=== PATIENT | female | born 1980 | race Caucasian/White ===

== ENCOUNTER 2016-03-31 08:05 | Observation (INO) | payer OTHER ==
[2016-03-31] MEDS ORDERED: OXYMETAZOLINE 30 ML NASAL SPRAY EACHNARE ONE (08:45)
[2016-03-31] MEDS ORDERED: BUPIVACAINE/EPI 0.5% 30 ML SDV ONE (08:57)
[2016-03-31] MEDS ORDERED: LIDO/EPI 2% **for epidural** 20 ML SDV ONE (08:58)
[2016-03-31] MEDS ORDERED: methylPREDNISolone SOD SUCC 125 MG/2 ML VIAL ONE (08:58)
[2016-03-31] MEDS ORDERED: POLYMYXIN B SULFATE 500,000 UNIT/10 ML SYR IRR ONE (08:59)
[2016-03-31] MEDS ORDERED: BACITRACIN 50,000 UNITS/10 ML SYR IRR ONE (08:59)
[2016-03-31] MEDS ORDERED: CLINDAMYCIN 600 MG/DEXTROSE 50 ML IV ONE (09:00)
[2016-03-31] MEDS ORDERED: MIDAZOLAM 2 MG/2 ML VIAL ONE (09:17)
[2016-03-31] MEDS ORDERED: PROPOFOL 200 MG/20 ML VIAL ONE ×2 (09:23→13:35)
[2016-03-31] MEDS ORDERED: fentaNYL 250 MCG/5 ML INJ ONE ×2 (09:23→13:34)
[2016-03-31] MEDS ORDERED: LIDOCAINE 2% 5 ML SDV ONE (09:24)
[2016-03-31] MEDS ORDERED: ROCURONIUM 50 MG/5 ML VIAL ONE (09:24)
[2016-03-31] MEDS ORDERED: DEXAMETHASONE 4 MG/ML VIAL ONE ×2 (09:24)
[2016-03-31] MEDS ORDERED: LIDOCAINE 2% JELLY 5 ML TUBE ONE (09:24)
[2016-03-31] MEDS ORDERED: ONDANSETRON 4 MG/2 ML VIAL ONE (09:24)
--- NOTE | 2016-03-31 09:27 | POSTOPPROG ---
Post Op Note Date of Operation: 03/31/16 Surgeon: Denys Mercado Stock Blender: Nemesio Mercado Anesthesiologist: Tristan Ortega Anesthesia: GET(General Endotracheal) (Nasal intubation) Pre-op Diagnosis: Mandibular hypoplasia, ROBB, vertical maxillary excess, microgenia Post-op Diagnosis: Same Indication: ROBB, dental and skeletal deformity Procedure: LeFort1 advancement, BSSO advancement, genioplasty Findings: OSVALDO trapped in the proximal segment bilaterally Inf/Abcess present in the surg proc area at time of surgery?: No EBL: 100-500 Complications: none Specimen(s): none
[2016-03-31] MEDS ORDERED: DEXMEDETOMIDINE HCL 200 MCG in NS 50 ML IV ONE ×2 (09:30→15:30)
[2016-03-31] MEDS ORDERED: SODIUM CL NASAL 45 ML BTL EACHNARE PRN (09:31)
[2016-03-31] MEDS ORDERED: PETROLATUM TP PRN (09:31)
[2016-03-31] MEDS ORDERED: OXYMETAZOLINE 30 ML NASAL SPRAY EACHNARE PRN (09:31)
[2016-03-31] MEDS ORDERED: CLINDAMYCIN 300 MG in D5W 50 ML IV SCH (14:00)
[2016-03-31] MEDS ORDERED: HYDROmorphONE/DILAUDID 1 MG/ML SYR ONE (17:52)
[2016-03-31] MEDS ORDERED: PETROLATUM,WHITE 28.35 GM TUBE TP PRN (19:10)
--- NOTE | 2016-03-31 19:14 | SOAPPROG ---
SOAP Progress Note Assessment/Plan: Assessment: Mery is POD #0 from LeFort 1 advancement, BSSO advancement, genioplasty with downgraft. Overall she is doing well Plan: 1. Will remove chin dressing tomorrow 2. Ice to face x48 hours 3. Transition to PO pain medication if possible. Use IV for breakthrough 4. Clear liquids tonight, full liquids tomorrow 5. I would like the patient to ambulate 4x daily, SCDs until ambulating 6. If the patient is taking good PO, ambulating, voiding and controlling pain with PO will consider discharge tomorrow 7. Please call my cell with questions: [phone] 03/31/16 19:11 Subjective: Mery is POD #0 from LeFort 1 advancement, BSSO advancement, genioplasty with downgraft. She had her Mercado removed at the conclusion of surgery and has voided once since. Pain is 4/10. Has not taken PO pain meds. No PO intake outside of ice chips. No ambulation except to the bathroom. Patient is c/o of thick secretions Objective: Vital Signs Temp Pulse Resp BP Pulse Ox 36.7 C 66 20 113/63 94 03/31/16 18:55 03/31/16 18:55 03/31/16 18:55 03/31/16 18:55 03/31/16 18:55 03/30/16 03/31/16 04/01/16 05:59 05:59 05:59 Intake Total 2500 Output Total 325 Balance 2175 Maxilla well perfused, occlusion stable and repeatable, elastics in place. Midline coincident with mandibular midline and facial midline. Bilateral V3 and V2 numbness. Facial swelling as expected. Chin dressing in place, ice to face. Sutures c/i, sites hemostatic. nasal septum midline, no crusting, breathing well Heart: NR/RR, Lungs CTAB - Time Spent With Patient Time Spent With Patient: 15 minutes - Pending Discharge Pending Discharge Within 24 Hours: Yes Pending Discharge Date: 04/01/16 Pending Discharge Time: 11:00 ICD10 Worksheet Patient Problems: Problems Problem Status Onset Mandibular hypoplasia Acute Obstructive sleep apnea Acute - ICD10 Problem Qualifiers (1) Mandibular hypoplasia
[2016-03-31] MEDS ORDERED: guaiFENesin 200 MG/10 ML UDCUP PO PRN (19:49)
[2016-03-31] MEDS: ONDANSETRON 4 MG/2 ML VIAL IVP PRN ×2 (19:49→21:51)
[2016-03-31] MEDS: KETOROLAC 30 MG/1 ML SDV IVP SCH ×2 (19:55→20:05)
[2016-03-31] MEDS: DEXAMETHASONE 4 MG/ML VIAL IVP SCH (19:56)
[2016-03-31] MEDS: CLINDAMYCIN 600 MG/DEXTROSE 50 ML IV SCH (19:56)
--- NOTE | 2016-03-31 21:44 | GOP ---
DATE OF OPERATION: 03/31/2016 SURGEON: Denys Mercado DDS SPECIALTY MANUFACTURING SUPERVISOR: Nemesio Mercado DDS ANESTHESIA: General nasotracheal. ANESTHESIOLOGIST: Aubrey Ortega MD PREOPERATIVE DIAGNOSIS: 1. Mandibular hypoplasia. 2. Maxillary hypoplasia. 3. Obstructive sleep apnea. 4. Microgenia. 5. Class 2 skeletodental deformity. POSTOPERATIVE DIAGNOSIS: 1. Mandibular hypoplasia. 2. Maxillary hypoplasia. 3. Obstructive sleep apnea. 4. Microgenia. 5. Class 2 skeletodental deformity. PROCEDURE PERFORMED: 1. LeFort 1 osteotomy advancement. 2. Bilateral sagittal split osteotomy advancement. 3. Genioplasty with down graft. FINDINGS: The inferior alveolar nerve was trapped in the proximal segment bilaterally. ESTIMATED BLOOD LOSS: Approximately 150 cc. INDICATIONS: This is a 35-year-old female with past medial history significant for epilepsy as well as the above preoperative diagnosis who has previously been evaluated in clinic and it was determined that orthognathic surgery was needed to correct her skeletodental facial deformity as well as her obstructive sleep apnea. She was seen in the clinic yesterday to go over risks, benefits, consequences, and potential complications of the procedure. Signed and verbal consent was obtained. We also reviewed postoperative instructions written and verbally. Postoperative prescriptions were also given to the patient at that time. She presented to the hospital today n.p.o. and with an escort. The plan will be to admit the patient to observation following surgery. DESCRIPTION OF PROCEDURE: The patient was transported into the OR and onto the operating room table. Following successful nasotracheal intubation the patient was prepped and draped in a normal sterile fashion. Throat screen was placed. Approximately 10 cc of a mixture of 2% Lidocaine with 1:200,000 epinephrine and 0.5% Marcaine with 1:200,000 epinephrine was infiltrated into the maxillary and mandibular vestibule and given in an inferior alveolar nerve block. A 0.35 K- wire was placed in the nasal radix and the vertical was measured. Bovie electrocautery was used to perform a ramus exposing incision on the right. Subperiosteal dissection was performed of both the buccal and lingual aspect of the mandible and the mandibular foramen was identified with a nerve hook. The masseter and medial pterygoid muscle was stripped off the inferior border. Next, a guarded oscillating saw was used to perform the horizontal osteotomy superior to the mandibular foramen. An unguarded oscillating saw blade was used to perform the sagittal portion of the osteotomy and then the guarded saw blade was used to perform the vertical portion of the osteotomy making sure that the osteotomy is carried all the way through the inferior border of the mandible. All osteotomy cuts were performed under copious irrigation during the procedure. The right mandibular surgical site was then irrigated with normal saline impregnated with bacitracin and Ray-Guadalupe was placed for hemostasis. Next the identical dissection and osteotomy cuts were performed on the left mandible. Attention was then turned to the maxilla where a vestibular incision was performed with the Bovie electrocautery and subperiosteal dissection was performed with a #9 to expose the anterior and lateral aspect of the maxilla all the way to the pterygoid plates. A Jessica elevator was used to carefully perform subperiosteal dissection of the nasal mucosa to expose the lateral nasal wall as well as the nasal floor. The septum was dissected off the anterior nasal spine. Next, a #9 was placed against the lateral nasal wall to protect the nasal mucosa and an oscillating saw was used to perform the LeFort 1 osteotomy bilaterally. The oscillating saw was then turned posteriorly to complete the osteotomy all the way through the buttress on the right and left maxilla. The osteotomy was redefined with a straight osteotome and mallet and then the guarded nasal chisel was used to separate the nasal septum from the nasal floor of the maxilla. The lateral nasal wall chisels were then used to complete the osteotomy of the lateral nasal wall making sure to spare the descending palatine artery. Finally, the curved osteotomes were used to separate the pterygoid plates from the maxilla bilaterally. The maxilla was then down-fractured and the nasal mucosa was completely dissected posteriorly off the nasal floor. Next, a septoplasty was performed of the inferior septum by dissecting the cartilaginous septum from the nasal mucosa and trimming approximately 5 mm of nasal septum. The lateral nasal wall and remaining bony septum were then trimmed with a rongeur being careful not to injure the descending palatine artery. A small tear in the nasal mucosa was reapproximated with a running 4-0 chromic suture. The patient was then wired into an intermediate splint and wendy interferences were removed with a watermelon bur under copious irrigation. Initially the patient's vertical dimension prior to the osteotomy was measured from a K wire in the nasal radix to her bracket on tooth #9 as 74 mm. Following the planned 5 mm impaction the patient's vertical was measured at 69 mm. Prior to fixating the maxilla the maxillary sinus and osteotomy site was thoroughly irrigated with bacitracin impregnated in normal saline and all bone sedimentation and bone fragments were removed. Once the passive wendy contact was noted on the right and left maxilla 4 separate Shun L-plates were contoured and secured to the maxilla with 5 and 6 mm self- drilling screws. Next, an alar cinch was performed to control the widening of the nasal base. Prior to LeFort osteotomy the patient's alar base was measurement was 29 mm. After the alar cinch was performed the alar base was measured at 29 mm. A 1cm V -Y closure was performed with 4-0 chromic suture as well as closure of the maxillary vestibular incision. The patient's intermediate splint was removed. Attention was then turned back to the mandible. The osteotomy was completed bilaterally with progressively enlarging straight and curved chisel and mallet as well as a Cain replacer and inferior border splitter. Once the right bilateral sagittal split osteotomy was completed it was noted that the inferior alveolar nerve was trapped in the proximal segment. A small straight chisel osteotome and mallet as well as careful dissection with a Versailles elevator were used to gently dissect the inferior alveolar nerve from where it was trapped along the proximal segment. It was trapped for approximately a 1.5 cm portion of the osteotomy. The inferior alveolar nerve did not appear to be grossly damaged outside of some minor tears in the epineurium once it was freely dissected from the proximal segment. On the left side the inferior alveolar nerve was also trapped but only in a small 7 mm portion of the marrow space and it was more easily dissected with Jessica elevator alone. The bony protrusions on the proximal segment were then smoothed and removed with a watermelon bur under copious irrigation bilaterally while protecting the inferior alveolar nerve. The patient was then placed into her final occlusal splint. The occlusion was verified and the proximal segments were passively seated into the cranial fossa and secured using a Charlotte clamp bilaterally. On the right side a 4 hole Kennard bone plate was used to secure the proximal and distal segment making sure to maintain the small gap between the proximal and distal segment. The plate was contoured and secured in place with 4 separate Kennard 5 and 6 mm screws. Two of the screws were 2.0 mm and the other two were 2.3 mm because the 2.0 mm screws were not stable. Next, attention was turned to the left side where a Kennard 6 hole mandibular bone plate was contoured and secured to the proximal and distal segment after the proximal segment was passively seated into the condylar fossa and the inferior border was aligned. The bone plate was secured in place with Shun 2.0 mm x 5 mm screws. The patient was released from intermaxillary fixation and her occlusion was verified. Equilibration on tooth #6 was performed where there was a slight interference. This was planned preoperatively. The equilibration was performed with a round paulie bur under irrigation. Because fixation was not as stable on the right side, I then went back and placed two 2 mm x 10 mm bicortical screws proximal to the bone plate to add extra stability to the fixation. This was done with the 90 degree screw jinriksha driver. Lastly, attention was turned to the genioplasty where 5 cc of the lidocaine/ marcaine mixture was infiltrated into the anterior mandibular vestibule. A vestibular incision was performed with the Bovie electrocautery making sure to preserve a cuff of mentalis muscle against the anterior mandible and also being mindful of the mental neurovascular bundle. Subperiosteal dissection was performed to identify the mental nerve and the midline of the chin was marked with vertical score through the anterior cortex using a reciprocating saw. Next , the saw blade was used to make the genioplasty cut 5 mm below the mental foramen and the genioplasty osteotomy was completed with straight osteotomes. The chin was mobilized and an 8 mm genioplasty plate was bent to allow for 6 mm of advancement and 5 to 6 mm of downgrafting. The osteotomy site was irrigated with bacitracin impregnated normal saline. An allograft fibula was then trimmed to create two separate allograft blocks which were placed in the genioplasty site to downgraft the chin. The bone plate was used to secure the genioplasty in the proper AP and vertical position. The remaining genioplasty defect was filled with combination of allograft particulate, xenograft particulate and allograft putty. The graft was covered with HeliCote and the vestibular incision was closed in layers. First the mentalis muscle was reapproximated with 4-0 Vicryl pop-off sutures and the mucosa was reapproximated with 4-0 Chromic gut running locking suture. The bilateral mandibular vestibular incisions were also closed with 4-0 Chromic gut running locking sutures. The patient's throat screen was removed and nasogastric tube was placed and her stomach contents were evacuated prior to extubation. The patient's K wire was removed and she was allowed to awake from anesthesia. A chin dressing was placed with Mastisol and 1-inch foam tape. Local anesthesia was then infiltrated into the maxillary and mandibular vestibule with 10 cc of the lidocaine-Marcaine mixture to help with patient's discomfort postoperatively. The patient was allowed to awake from anesthesia and was transported to the PACU in stable condition. DISPOSITION: The patient will be admitted for observation overnight and will possibly be discharged tomorrow if she is doing well postoperatively. /[id number]/MODL MTDD
[2016-04-01] MEDS ORDERED: SCOPOLAMINE HYDROBROMIDE 1.5 MG PATCH TD PRN (00:06)
[2016-04-01] MEDS: FLUTICASONE NASAL 120 SPRAYS/16 GM MDI EACHNARE SCH ×2 (00:58→08:45)
[2016-04-01] MEDS: PROMETHAZINE HCL 25 MG/ML INJ IVP PRN ×2 (01:09→08:47)
[2016-04-01] MEDS: KETOROLAC 30 MG/1 ML SDV IVP SCH ×5 (01:09→23:14)
[2016-04-01] MEDS: CLINDAMYCIN 600 MG/DEXTROSE 50 ML IV SCH ×3 (03:18→20:39)
[2016-04-01] MEDS: DEXAMETHASONE 4 MG/ML VIAL IVP SCH ×3 (03:18→20:39)
--- NOTE | 2016-04-01 07:51 | SOAPPROG ---
SOAP Progress Note Assessment/Plan: Assessment: Mery is POD #1 from LeFort 1 advancement, BSSO advancement, genioplasty with downgraft. Overall she is doing well Plan: 1. Patient has elected to take liquid Keppra instead of her ER Keppra tab. This will be given in two separate doses 2. Ice to face x48 hours 3. Transition to PO pain medication if possible. Use IV for breakthrough 4. Full liquids today 5. I would like the patient to ambulate 4x daily, SCDs until ambulating 6. If the patient is taking good PO, ambulating, voiding and controlling pain with PO will consider discharge at 5PM tonight 7. Please call my cell with questions: [phone] 03/31/16 19:11 04/01/16 07:47 Subjective: Mery is POD #1 from LeFort 1 advancement, BSSO advancement, genioplasty with downgraft. She is voiding but is not taking good PO. She has nausea last night but no vomiting. Pain is well controlled with IV. Objective: Vital Signs Temp Pulse Resp BP Pulse Ox 36 C 88 16 128/80 H 96 04/01/16 07:35 04/01/16 07:35 04/01/16 07:35 04/01/16 07:35 04/01/16 07:35 03/31/16 04/01/16 04/02/16 05:59 05:59 05:59 Intake Total 2952 Output Total 1425 Balance 1527 Chin dressing removed, no hematoma. Sutures c/i and hemostatic. Minor nasal crusting present but patient using ocean and humidified air. Able to breath easily through her nose. Maxillary mucosa well perfused. V3 and V2 numbness present. Occlusion stable, elastics in place. ICD10 Worksheet Patient Problems: Problems Problem Status Onset Mandibular hypoplasia Acute Obstructive sleep apnea Acute - ICD10 Problem Qualifiers (1) Mandibular hypoplasia
[2016-04-01] MEDS ORDERED: LEVETIRACETAM 1000 MG PO SCH (09:00)
[2016-04-01] MEDS: levETIRAcetam 500 MG/5 ML UDCUP PO SCH ×2 (09:57→20:39)
[2016-04-01] MEDS: LEVONORGESTREL ETHIN ESTRADIOL PO SCH (11:09)
[2016-04-01] MEDS: HYDROCOD/APAP 7.5/325 IN 15ML UDCUP PO PRN ×2 (13:50→20:38)
[2016-04-01 22:54] VITALS: RESP 16
[2016-04-02] MEDS: FLUTICASONE NASAL 120 SPRAYS/16 GM MDI EACHNARE SCH ×2 (00:18→08:27)
[2016-04-02] MEDS: CLINDAMYCIN 600 MG/DEXTROSE 50 ML IV SCH ×2 (05:40→11:02)
[2016-04-02] MEDS: DEXAMETHASONE 4 MG/ML VIAL IVP SCH ×2 (05:41→11:02)
[2016-04-02] MEDS: KETOROLAC 30 MG/1 ML SDV IVP SCH ×2 (05:41→11:45)
[2016-04-02 07:25] VITALS: BP 125/97; PULSE 73; TEMP 97.9; O2SAT 99
--- NOTE | 2016-04-02 07:39 | SOAPPROG ---
SOAP Progress Note Assessment/Plan: Assessment: Mery is POD #2 from LeFort 1 advancement, BSSO advancement, genioplasty with downgraft. Overall she is doing well Plan: 1. Patient has asked for liquid medication. This includes liquid Keppra 500mg BID 2. Ice to face through today 3. Continue PO pain medication if possible. 4. Full liquids today 5. I would like the patient to ambulate 4x daily, SCDs until ambulating 6. Discharge at 12 today. I would like the patient to receive one more dose of steroid and ABX prior to discharge 7. Please call my cell with questions: [phone] 03/31/16 19:11 04/01/16 07:47 04/02/16 07:35 04/02/16 07:44 Subjective: Mery is POD #2 from LeFort 1 advancement, BSSO advancement, genioplasty with downgraft. Patient has taken over 1L of fluid over the last 24 hours. Pain is 3- 4/10. She is ambulating and is controlling pain with PO pain meds and IV Toradol Objective: Vital Signs Temp Pulse Resp BP Pulse Ox 36.6 C 73 16 125/97 H 99 04/02/16 07:22 04/02/16 07:22 04/02/16 07:22 04/02/16 07:22 04/02/16 07:22 04/01/16 04/02/16 04/03/16 05:59 05:59 05:59 Intake Total 2952 1135 Output Total 1425 Balance 1527 1135 Exam unchanged from last night with the exception of slightly more swelling in the lips - Time Spent With Patient Time Spent With Patient: 15 min - Pending Discharge Pending Discharge Within 24 Hours: Yes Pending Discharge Date: 04/03/16 Pending Discharge Time: 12:00 ICD10 Worksheet Patient Problems: Problems Problem Status Onset Mandibular hypoplasia Acute Obstructive sleep apnea Acute - ICD10 Problem Qualifiers (1) Mandibular hypoplasia
[2016-04-02] MEDS: levETIRAcetam 500 MG/5 ML UDCUP PO SCH (08:26)
[2016-04-02] MEDS: CHLORHEXIDINE GLUCONATE 15 ML UDL PO SCH ×2 (08:26→11:12)
--- NOTE | 2016-04-02 09:34 | GDS ---
DIAGNOSES: 1. Mandibular hypoplasia. 2. Maxillary hypoplasia. 3. Obstructive sleep apnea. 4. Dentoskeletal class 2 deformity. 5. Microgenia. PROCEDURE: Date of procedure was 03/31/2016. 1. LeFort 1 advancement. 2. Bilateral sagittal split osteotomy advancement. 3. Genioplasty with down graft. CONSULTATIONS: None. HISTORY OF PRESENT ILLNESS: The patient is a 35-year-old female who was previously diagnosed with o bstructive sleep apnea as well as a class 2 skeletodental facial deformity requiring orthognathic hammond rgery to correct. She had orthognathic surgery performed on 03/31/2016 to correct her deformity. S he was admitted to the hospital following the surgery and had a benign postoperative course. PHYSICAL EXAMINATION: HEAD AND NECK: Occlusion stable and repeatable. Maxillary and mandibular mi dline coincident with facial midline. Facial swelling consistent with surgery. The patient has duy ateral V2 and V3 numbness. Incisions clean, intact, hemostatic. Nasal septum midline. Minimal garth al crusting is noted. DISCHARGE MEDICATIONS: The patient was given all of her discharge medications at the office prior t o being admitted to surgery. These included liquid hydrocodone, liquid Phenergan, liquid ibuprofen, liquid Keppra, chlorhexidine mouth rinse, Afrin nasal spray, Flonase. DISCHARGE INSTRUCTIONS: The patient will be discharged on a liquid diet for the next 6 weeks. She is not to lift over 20 pounds for the next 6 weeks. FOLLOWUP PLANS: She will follow up in our office on 04/02/2016 for postoperative x-rays. /[id number]/MODL
[2016-04-02] MEDS: LEVONORGESTREL ETHIN ESTRADIOL PO SCH (10:36)
== END 2016-04-02 12:22 | disposition home or self-care (01) ==
LOC: F3E 08:05
PROVIDERS: ADMIT Dentist Oral and Maxillofacial Surgery; ATTEND Dentist Oral and Maxillofacial Surgery
PROC: 0NST0ZZ Reposition Right Mandible, Open Approach (ICD-10-PCS; principal; 2016-03-31 09:45)
PROC: 0NSR0ZZ Reposition Maxilla, Open Approach (ICD-10-PCS; principal; 2016-03-31 09:45)
PROC: [UNRECOGNIZED PROCEDURE] (principal; 2016-03-31 09:45)
PROC: 0NSV0ZZ Reposition Left Mandible, Open Approach (ICD-10-PCS; principal; 2016-03-31 09:45)
DX: M26.04 Mandibular hypoplasia (principal); M26.02 Maxillary hypoplasia; M26.06 Microgenia; G47.33 Obstructive sleep apnea (adult) (pediatric); G40.B09 Juvenile myoclonic epilepsy, not intractable, without status epilepticus
CPT/HCPCS: 21141; 21188; G0378; C1713; C1762; C1763; J1100; J1170; J1885; J2250; J2405; J2550; J2704; J3010

== ENCOUNTER → 2018-02-28 | Outpatient (CLI) | payer OTHER | LOC: FIMAGING 09:13 | PROVIDERS: ATTEND Advanced Practice Midwife | DX: O09.512 Supervision of elderly primigravida, second trimester (principal); O99.89 Other specified diseases and conditions complicating pregnancy, childbirth and the puerperium; G40.909 Epilepsy, unspecified, not intractable, without status epilepticus; Q24.9 Congenital malformation of heart, unspecified; Z3A.28 28 weeks gestation of pregnancy ==

== ENCOUNTER 2018-05-02 10:20 | Observation (INO) | payer OTHER ==
--- NOTE | 2018-05-02 11:12 | PDGENHP ---
History and Physical History and Physical: CARE: [facility] HPI: Patient is a 37 yo G 1 P 0 @ weeks that presents to L&D after having 2 elevated blood pressures at routine visit today. She denies headache or visual changes. 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 She is here for serial BP and review of her PIH labs that were drawn earlier as outpatient EDC: 05/20/18 which is based on LMP: 08/01/17 which is known. But HOLLAND not consistent with Ultrasound at 8 weeks, so working HOLLAND based on early u/s. Her is complicated by: AMA; history of juvenile myoclonic epilepsy, on Keppra; hx of BBB (intermittent); hx of migraines with aura; stable PFO Review of Systems: Constitutional: Denies any fever, chills, or fatigue HEENT: denies any visual changes, difficulty swallowing, hearing loss Cardiovascular: Denies any chest pain, palpitations, leg swelling Respiratory: denies any cough, wheezing, or shortness of breathe GI: Denies any nausea, vomiting, diarrhea, constipation : denies any dysuria, urgency, frequency, vaginal bleeding Musculoskeletal: denies any muscle or bone pain Skin: denies any rashes Neuro: denies any headache, seizures, lightheadedness, dizziness, or loss of consciousness Psychiatric: denies any depression, anxiety, or SI/HI thoughts HISTORY: Previous OB history: nullip 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: , 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 history: non-contributory Past medical history: BBB, stable PFO, juvenile myoclonic epilepsy Past surgical history: appendectomy 2006, jaw surgery 2017, wisdom teeth Medications: PNV, keppra 1000mg qday, benadryl PRN Allergies (list reaction): amoxicillin (hives), lamictal (hives) LABS: Rh: B+ ABS: Neg Rubella: Immune HbsAg: NR HIV: NR VDRL: NR 1hr: 108 GC: Neg Chlamydia: Neg Pap: Normal 2018 GBS: neg BMI: (prepreg) 23 PHYSICAL EXAM: Constitutional: WN, A&Ox3 HEENT: normocephalic atraumatic, supple Heart: RRR, no murmur Chest: CTA-B Skin: warm, dry, intact Abdomen: Soft, nontender, gravid SVE: closed/thick in office Extremities: trace edema, negative homans sign Neuro: grossly normal, brisk reflexes Psych: normal affect assessment: FHT baseline 130, +accels, no decels, moderate variability Contractions: none Assessment: 1) 37 yo with IUP@ 37.3 2) elevated BP in office 3) GBS neg 4) Cat 1 FHR tracing Plan: 1) Admit to L&D for observation only 2) PIH labs normal this AM 3) serial BP, d/c home after 4 hour observation .
--- NOTE | 2018-05-02 13:02 | OBGCSDC ---
General Delivery Information - General Info : 1 Para: 0 Abortions: 0 Admission Date: 05/02/18 Data HOLLAND: 05/20/18 Gestational Age: 37 week(s) and 3 day(s) Discharge Information - Discharge Information Instruction/Follow Up: See Instruction Sheet (discharge undelivered)
== END 2018-05-02 13:14 | disposition home or self-care (01) ==
LOC: FLD 10:20
PROVIDERS: ADMIT Advanced Practice Midwife; ATTEND Advanced Practice Midwife
DX: O99.89 Other specified diseases and conditions complicating pregnancy, childbirth and the puerperium (principal); R03.0 Elevated blood-pressure reading, without diagnosis of hypertension; O09.513 Supervision of elderly primigravida, third trimester; G40.B09 Juvenile myoclonic epilepsy, not intractable, without status epilepticus; G43.109 Migraine with aura, not intractable, without status migrainosus; Q21.1 Atrial septal defect; Z3A.37 37 weeks gestation of pregnancy
CPT/HCPCS: 59025; G0378

== ENCOUNTER 2018-05-04 16:29 | Inpatient (IN) | payer OTHER ==
--- NOTE | 2018-05-04 16:56 | PDGENHP ---
History and Physical History and Physical: History and Physical: CARE: [facility] HPI: Patient is a 37 yo G 1 P 0 @ 37 weeks and 6 days that presents to L&D after having elevated blood pressures in office on Tuesday and again today at her f/u visit. She denies headache or visual changes. She also has proteinurea that developed today with P/C ratio of 0.312 or 369mg/24hour. EDC: 05/20/18 which is based on LMP: 08/01/17 which is known. But HOLLAND not consistent with Ultrasound at 8 weeks, so working HOLLAND based on early u/s. Her is complicated by: AMA; history of juvenile myoclonic epilepsy, on Keppra; hx of BBB (intermittent); hx of migraines with aura; stable PFO Review of Systems: Constitutional: Denies any fever, chills, or fatigue HEENT: denies any visual changes, difficulty swallowing, hearing loss Cardiovascular: Denies any chest pain, palpitations, leg swelling Respiratory: denies any cough, wheezing, or shortness of breathe GI: Denies any nausea, vomiting, diarrhea, constipation : denies any dysuria, urgency, frequency, vaginal bleeding Musculoskeletal: denies any muscle or bone pain Skin: denies any rashes Neuro: denies any headache, seizures, lightheadedness, dizziness, or loss of consciousness Psychiatric: denies any depression, anxiety, or SI/HI thoughts HISTORY: Previous OB history: nullip 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: , 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 history: non-contributory Past medical history: BBB, stable PFO, juvenile myoclonic epilepsy Past surgical history: appendectomy 2006, jaw surgery 2017, wisdom teeth Medications: PNV, keppra 1000mg qday, benadryl PRN Allergies (list reaction): amoxicillin (hives), lamictal (hives) LABS: Rh: B+ ABS: Neg Rubella: Immune HbsAg: NR HIV: NR VDRL: NR 1hr: 108 GC: Neg Chlamydia: Neg Pap: Normal 2018 GBS: neg BMI: (prepreg) 23 PHYSICAL EXAM: Constitutional: WN, A&Ox3 HEENT: normocephalic atraumatic, supple Heart: RRR, no murmur Chest: CTA-B Skin: warm, dry, intact Abdomen: Soft, nontender, gravid SVE: closed/thick in office on Tuesday Extremities: trace edema, negative homans sign Neuro: grossly normal, brisk reflexes Psych: normal affect assessment: FHT baseline 130, +accels, no decels, moderate variability Contractions: none Assessment: 1) 37 yo with IUP@ 37.6 2) pre-eclampsia 3) GBS neg 4) Cat 1 FHR tracing Plan: 1) Admit to L&D for induction of labor 2) Anticipate 3) case reviewed with Dr. New and she agrees with plan
[2018-05-04] MEDS ORDERED: TERBUTALINE SULFATE 1 MG/ML VIAL IV PRN (19:40)
[2018-05-04] MEDS ORDERED: EPSOM SALT 454 GM TP PRN (19:40)
[2018-05-04] MEDS ORDERED: AMMONIA AROMATIC 1 EACH AMP IH PRN (19:40)
[2018-05-04] MEDS ORDERED: OXYTOCIN/RINGERS LACTATE 1,000 ML IV PRN (19:40)
[2018-05-04] MEDS ORDERED: MISOPROSTOL 200 MCG TAB PO PRN (19:40)
[2018-05-04] MEDS ORDERED: LR 1,000 ML IV PRN (19:40)
[2018-05-04] MEDS ORDERED: OLIVE OIL 118 ML BTL MISC PRN (19:40)
[2018-05-04] MEDS ORDERED: LIDOCAINE 1% 300 MG/30 ML SDV SC PRN (19:40)
[2018-05-04] MEDS ORDERED: IBUPROFEN 600 MG TAB PO PRN (19:40)
[2018-05-04] MEDS ORDERED: ZOLPIDEM TARTRATE 5 MG TAB PO PRN (19:42)
--- NOTE | 2018-05-04 19:46 | SOAPPROG ---
SOAP Progress Note Assessment/Plan: Assessment: 1. Pre-eclampsia 2. 37.5 weeks gestation Plan: 1. Induction of labor 05/04/18 19:44 Subjective: VSS, elevate BP since admission, no severe BP Objective: Pt comfortable. FOB at bedside - Pending Discharge Pending Discharge Within 24 Hours: No Pending Discharge Within 48 Hours: No ICD10 Worksheet Patient Problems: Problems Problem Status Onset Elevated blood pressure affecting in third trimester, antepartum Acute Pre-eclampsia during in third trimester, antepartum Acute Mandibular hypoplasia Acute Obstructive sleep apnea Acute - ICD10 Problem Qualifiers (1) Pre-eclampsia during in third trimester, antepartum
[2018-05-04] MEDS ORDERED: OLIVE OIL 118 ML BTL MISC ONE (20:17)
[2018-05-04] MEDS ORDERED: LIDOCAINE 1% 300 MG/30 ML SDV ONE (20:17)
[2018-05-04] MEDS ORDERED: AMMONIA AROMATIC 1 EACH AMP IH ONE (20:17)
[2018-05-04] MEDS: MISOPROSTOL 25 MCG CAP PO PRN (21:14)
[2018-05-05] MEDS: MISOPROSTOL 25 MCG CAP PO PRN ×2 (01:05→05:16)
--- NOTE | 2018-05-05 09:05 | OBPROG ---
Labor Progress Note Assessment/Plan: Assessment: 38 y/o P0 at 37.6 weeks ega Pre -eclampsia without severe features 3 doses of cytotec overnight with little response Cervical exam unchanged this AM - closed/50/-2 VSS - BPs 130s/80s overnight Denies headache, visual changes, epigastric pain Cat 1 EFM Plan: Place cook cath One more dose of cytotec and reevaluate for pitocin after that dose 05/05/18 09:06 Objective: Patient ABO/Rh B POSITIVE 05/04/18 20:00 - SVE Dilation (cm): 0 Effacement (%): 50 Station: -2 Membranes: Intact - Contraction Pattern Assessment Current Contraction Pattern: Irregular - Procedures Non-surgical Procedures: Other (Specify) (Cook catheter placed, 60 cc internal balloon, 20 cc external balloon) - Physical Exam General Appearance: WD/WN, alert Neck: non-tender Respiratory: normal breath sounds Cardiac/Chest: regular rate, rhythm Abdomen: non-tender Extremities: normal range of motion Skin: normal color, warm/dry Neuro/Psych: alert, normal mood/affect, oriented x 3 Oxytocin Orders Assessment - Pre-Induction/Augmentation Assessment Gestational Age: 37 week(s) and 5 day(s) ICD10 Worksheet Patient Problems: Problems Problem Status Onset Elevated blood pressure affecting in third trimester, antepartum Acute Pre-eclampsia during in third trimester, antepartum Acute Mandibular hypoplasia Acute Obstructive sleep apnea Acute
[2018-05-05] MEDS ORDERED: MISOPROSTOL 50 MCG CAP PO ONE (09:18)
[2018-05-05] MEDS ORDERED: LR 500 ML IV PRN (15:04)
--- NOTE | 2018-05-05 15:10 | OBPROG ---
Labor Progress Note Assessment/Plan: Assessment: 38 y/o P0 at 37.6 weeks ega Pre -eclampsia without severe features Cook catheter remains in place Mild/mod contractions q 2-4 - feeling cramps, still fairly comfortable VSS - BPs 130s/80s overnight Denies headache, visual changes, epigastric pain Cat 1 EFM Plan: Will start pitocin per protocol Pain management as patient desires Reevaluate this PM if not actively laboring 05/05/18 09:06 05/05/18 15:07 Objective: Patient ABO/Rh B POSITIVE 05/04/18 20:00 Starting to feel more crampy discomfort with contractions. Tolerating well - SVE Membranes: Intact - Contraction Pattern Assessment Current Contraction Pattern: Regular - Procedures Non-surgical Procedures: Other (Specify) (Cook catheter placed, 60 cc internal balloon, 20 cc external balloon) Oxytocin Orders Assessment - Pre-Induction/Augmentation Assessment Gestational Age: 37 week(s) and 5 day(s) ICD10 Worksheet Patient Problems: Problems Problem Status Onset Pre-eclampsia during in third trimester, antepartum Acute Elevated blood pressure affecting in third trimester, antepartum Acute Mandibular hypoplasia Acute Obstructive sleep apnea Acute
[2018-05-05] MEDS ORDERED: OXYTOCIN/RINGERS LACTATE 500 ML IV SCH (15:30)
[2018-05-05] MEDS ORDERED: fentaNYL 2MCG/ML/BUP 0.1% RTU 100 ML BAG EP ONE (18:30)
[2018-05-05] MEDS ORDERED: BUPIVACAINE 0.25% 10 ML SDV ONE (18:30)
[2018-05-05] MEDS ORDERED: PHENYLEPHRINE HCL 100 MCG/ML SYR ONE (18:30)
--- NOTE | 2018-05-05 18:51 | OBPROG ---
Labor Progress Note Assessment/Plan: Assessment: 38 y/o P0 at 37.6 weeks ega Pre -eclampsia without severe features Cook catheter removed with a tug, SVE 3-4/75/-2 SROM clear fluid Pitocin at 6 mu VSS - BPs WNL Denies headache, visual changes, epigastric pain Cat 1 EFM currently, had a short period of intermittent variable decelerations after SROM that have resolved Requesting epidural Plan: Anesthesia notified Anticipate 05/05/18 09:06 05/05/18 15:07 05/05/18 18:48 Subjective/Intrapartum Course: 05/05/18 18:51 Feeling much more uncomfortable since SROM. Tried tub and nitrous - requesting epidural now. Objective: Patient ABO/Rh B POSITIVE 05/04/18 20:00 - SVE Dilation (cm): 3 Effacement (%): 75 Station: -2 Membranes: SROM, Intact Amniotic Fluid Color: Clear - Contraction Pattern Assessment Current Contraction Pattern: Regular - Procedures Non-surgical Procedures: Other (Specify) (Cook catheter placed, 60 cc internal balloon, 20 cc external balloon) Oxytocin Orders Assessment - Pre-Induction/Augmentation Assessment Gestational Age: 37 week(s) and 5 day(s) ICD10 Worksheet Patient Problems: Problems Problem Status Onset Pre-eclampsia during in third trimester, antepartum Acute Elevated blood pressure affecting in third trimester, antepartum Acute Mandibular hypoplasia Acute Obstructive sleep apnea Acute
[2018-05-05] MEDS ORDERED: NALOXONE HCL 0.4 MG/ML INJ IVP PRN (18:57)
[2018-05-05] MEDS ORDERED: PHENYLEPHRINE HCL 100 MCG/ML SYR IVP PRN (18:57)
--- NOTE | 2018-05-05 18:59 | PREANESOB ---
Obstetric Pre-Anesthesia Info - General Info : 1 Para: 0 [place]: 05/20/18 Gestational Age: 37 week(s) and 5 day(s) - Info Status: Full Term - Labor Status Cervical Dilation per last OB SVE: 3 Station per last OB SVE: -2 Amniotic Fluid Color: Clear Indications for Labor Analgesia: Pain Control Labor Epidural: Proposed Anesthesia Allergies/Adverse Reactions: Allergy/AdvReac Type Severity Reaction Status Date / Time amoxicillin [Amoxicillin] Allergy Hives Verified 05/04/18 17:28 lamotrigine [From Lamictal] Allergy Hives Verified 05/04/18 17:28 pseudoephedrine HCl Allergy Other-Enter Verified 05/04/18 17:28 [From Sudafed] Comments Home Medications: Medication Instructions Recorded Magnesium Oxide [Magnesium Oxide 500 mg PO DAILY 03/02/16 500 mg] Keppra 1000 mg 1 tab PO DAILY 05/02/18 1 tab PO DAILY 05/02/18 Visit Medications: Generic Name Dose Route Start Last Admin Trade Name Freq PRN Reason Stop Dose Admin Ammonia (Aromatic Spirit) 1 each 05/04/18 19:40 Ammonia Aromatic IH 05/14/18 19:39 ONCE PRN Fainting Diphenhydramine HCl 25 - 50 mg 05/05/18 18:57 Benadryl Injection IVP 11/01/18 18:56 Q6HRS PRN Itching Lactated Ringer's 1,000 mls @ 0 mls/hr 05/04/18 19:40 Lr IV 05/05/18 19:39 PRN PRN SEE PROTOCOL CONDITIONS Protocol Per Protocol Oxytocin/Lactated Ringer's 1,000 mls @ 0 mls/hr 05/04/18 19:40 Pitocin 20 Units/Lr (Premix) IV PRN PRN Post bleeding As Directed Lactated Ringer's 500 mls @ 500 mls/hr 05/05/18 15:04 Lr IV 05/06/18 15:04 PRN PRN Maternal Hypotension Oxytocin/Lactated Ringer's 500 mls @ 0 mls/hr 05/05/18 15:30 05/05/18 15:26 Pitocin 30 Units/Lr (Premix) IV 11/01/18 15:29 500 mls CONT MEAGAN Administration Protocol Per Protocol Fentanyl/Bupivacaine HCl 100 mls @ 0 mls/hr 05/05/18 19:00 Fentanyl/Bupivacaine/Ns 2 Mcg/Ml 0.1% (Premix EP 05/15/18 18:59 CONT MEAGAN Protocol As Directed Lactated Ringer's 500 mls @ 0 mls/hr 05/05/18 19:00 Lr IV 11/01/18 18:59 CONT MEAGAN As Directed Ibuprofen 600 mg 05/04/18 19:40 Motrin PO ONCE PRN post , pain Levetiracetam 1,000 mg 05/05/18 22:00 Keppra PO 11/01/18 21:59 DAILY@2200 MEAGAN Lidocaine HCl 300 mg 05/04/18 19:40 Lidocaine Hcl 1% SC 10/31/18 19:39 ONCE PRN episiotomy Magnesium Sulfate 454 gm 05/04/18 19:40 Epsom Salt TP 10/31/18 19:39 Q1H PRN perineal discomfort Misoprostol 800 - 1,000 mcg 05/04/18 19:40 Cytotec PO 10/31/18 19:39 ONCE PRN Vaginal Atony/Bleeding [place] Oil 118 ml 05/04/18 19:40 Sweet Oil MISC 10/31/18 19:39 ONCE PRN perineal massage Terbutaline Sulfate 0.25 mg 05/04/18 19:40 Brethine IV 10/31/18 19:39 ONCE PRN Tachysystole Zolpidem Tartrate 10 mg 05/04/18 19:42 05/04/18 21:13 Ambien PO 10/31/18 19:41 10 mg HS PRN Administration Sleep/Insomnia Discontinued Medications Generic Name Dose Route Start Last Admin Trade Name Antonioq PRN Reason Stop Dose Admin Ammonia (Aromatic Spirit) Confirm 05/04/18 20:17 Ammonia Aromatic Administered 05/04/18 20:18 Dose 1 each IH .STK-MED ONE Bupivacaine HCl Confirm 05/05/18 18:30 Sensorcaine 0.25% Sdv Administered 05/05/18 18:31 Dose 10 ml .ROUTE .STK-MED ONE Fentanyl/Bupivacaine HCl Confirm 05/05/18 18:30 Fentanyl/Bupivacaine/Ns 2 Mcg/Ml 0.1% (Premix Administered 05/05/18 18:31 Dose 100 ml EP .STK-MED ONE Lidocaine HCl Confirm 05/04/18 20:17 Lidocaine Hcl 1% Administered 05/04/18 20:18 Dose 300 mg .ROUTE .STK-MED ONE Misoprostol 25 mcg 05/04/18 19:45 05/05/18 05:16 Cytotec PO 10/31/18 19:44 25 mcg Q4H PRN Administration CERVICAL RIPENING Misoprostol 50 mcg 05/05/18 09:18 05/05/18 10:09 Cytotec PO 05/05/18 09:19 50 mcg ONCE ONE Administration [place] Oil Confirm 05/04/18 20:17 Sweet Oil Administered 05/04/18 20:18 Dose 118 ml MISC .STK-MED ONE Phenylephrine HCl Confirm 05/05/18 18:30 Neosynephrine Administered 05/05/18 18:31 Dose 1,000 mcg .ROUTE .STK-MED ONE - Anesthesia History Response to Local Anesthetics: Normal Anesthesia & Operative History: No Prior Problems Family Anesthesia History: Negative - Social History Substance Use/Abuse: Denies - Vital Signs Height/Weight (Nursing): Height 163.2 cm Weight 73.482 kg - Focused Exam Neck exam: FROM Mallampati Score: Class 2 Mouth exam: normal dental/mouth exam Pulmonary: no respiratory distress Cardiovascular: regular rate and rhythym Labs: Patient ABO/Rh B POSITIVE 05/04/18 20:00 - Plan Anesthetic Plan: TRISTEN Consent Signed and on Chart: Yes Patient/Guardian Understands and Agrees to Plan: Yes Urgent/Emergent Case: Eb mcleod completed preop but documented later for safe timely pt care
[2018-05-05] MEDS ORDERED: LR 500 ML IV SCH (19:00)
[2018-05-05] MEDS ORDERED: fentaNYL 2MCG/ML/BUP 0.1% RTU 100 ML EP SCH (19:00)
[2018-05-05] MEDS: ONDANSETRON 4 MG/2 ML VIAL IVP PRN (20:04)
[2018-05-05] MEDS: levETIRAcetam 500 MG TAB PO SCH (21:36)
--- NOTE | 2018-05-06 00:27 | OBPROG ---
Labor Progress Note Assessment/Plan: Assessment: 38 y/o P0 at 37.6 weeks ega Pre -eclampsia without severe features SVE 75/-2 Pitocin at 6 mu VSS - BPs WNL Denies headache, visual changes, epigastric pain Cat 1 EFM currently, has had intermittent late decelerations over the last few hours that go away with position change Plan: IUPC placed MVUs inadequate Will continue to increase pitocin dosage Anticipate 05/05/18 09:06 05/05/18 15:07 05/05/18 18:48 05/06/18 00:25 Subjective/Intrapartum Course: 05/05/18 18:51 Feeling much more uncomfortable since SROM. Tried tub and nitrous - requesting epidural now. Objective: Patient ABO/Rh B POSITIVE 05/04/18 20:00 Comfortable with epidural - SVE Dilation (cm): 6 Effacement (%): 75 Station: -2 Membranes: SROM, Intact Amniotic Fluid Color: Clear - Contraction Pattern Assessment Current Contraction Pattern: Regular - Procedures Non-surgical Procedures: IUPC, Other (Specify) (Cook catheter placed, 60 cc internal balloon, 20 cc external balloon) Oxytocin Orders Assessment - Pre-Induction/Augmentation Assessment Gestational Age: 37 week(s) and 5 day(s) ICD10 Worksheet Patient Problems: Problems Problem Status Onset Pre-eclampsia during in third trimester, antepartum Acute Elevated blood pressure affecting in third trimester, antepartum Acute Mandibular hypoplasia Acute Obstructive sleep apnea Acute
[2018-05-06] MEDS: ONDANSETRON 4 MG/2 ML VIAL IVP PRN (00:49)
--- NOTE | 2018-05-06 07:43 | OBPROG ---
Labor Progress Note Assessment/Plan: Assessment: 38 y/o P0 at 37.6 weeks ega Pre -eclampsia without severe features SVE 10/0 station Pitocin at 8 mu VSS - BPs WNL Denies headache, visual changes, epigastric pain Cat 1 EFM Plan: Will start pushing Anticipate 05/05/18 09:06 05/05/18 15:07 05/05/18 18:48 05/06/18 00:25 05/06/18 07:42 Subjective/Intrapartum Course: 05/05/18 18:51 Feeling much more uncomfortable since SROM. Tried tub and nitrous - requesting epidural now. Objective: Patient ABO/Rh B POSITIVE 05/04/18 20:00 Comfortable with epidural - SVE Dilation (cm): 10 Station: 0 Membranes: SROM, Intact Amniotic Fluid Color: Clear - Contraction Pattern Assessment Current Contraction Pattern: Regular - Procedures Non-surgical Procedures: IUPC, Other (Specify) (Cook catheter placed, 60 cc internal balloon, 20 cc external balloon) Oxytocin Orders Assessment - Pre-Induction/Augmentation Assessment Gestational Age: 37 week(s) and 5 day(s) ICD10 Worksheet Patient Problems: Problems Problem Status Onset Pre-eclampsia during in third trimester, antepartum Acute Elevated blood pressure affecting in third trimester, antepartum Acute Mandibular hypoplasia Acute Obstructive sleep apnea Acute
[2018-05-06] MEDS ORDERED: HYDROCODONE/APAP 5/325 TAB PO PRN (09:49)
[2018-05-06] MEDS ORDERED: HYDROCORTISONE 0.5% CREAM TP PRN (09:49)
[2018-05-06] MEDS ORDERED: SIMETHICONE 80 MG TAB CHEW PO PRN (09:49)
--- NOTE | 2018-05-06 09:49 | OBDEL ---
Info Type: Vaginal Presentation at Delivery: Vertex L&D Analgesia/Anesthesia Type: Epidural, Nitrous GBS+: No Intrapartum Medications: Generic Name Dose Route Start Last Admin Trade Name Neri PRN Reason Stop Dose Admin Oxytocin/Lactated Ringer's 500 mls @ 0 mls/hr 05/05/18 15:30 05/05/18 15:26 Pitocin 30 Units/Lr (Premix) IV 11/01/18 15:29 500 mls CONT MEAGAN Administration Protocol Per Protocol Fentanyl/Bupivacaine HCl 100 mls @ 0 mls/hr 05/05/18 19:00 05/06/18 01:14 Fentanyl/Bupivacaine/Ns 2 Mcg/Ml 0.1% (Premix EP 05/15/18 18:59 100 mls CONT MEAGAN Administration Protocol As Directed Levetiracetam 1,000 mg 05/05/18 22:00 05/05/18 21:36 Keppra PO 11/01/18 21:59 1,000 mg DAILY@2200 MEAGAN Administration Ondansetron HCl 4 mg 05/05/18 18:57 05/06/18 00:49 Zofran IVP 05/06/18 18:56 4 mg Q4HRS PRN Administration Nausea/Vomiting, Can't Take PO Zolpidem Tartrate 10 mg 05/04/18 19:42 05/04/18 21:13 Ambien PO 10/31/18 19:41 10 mg HS PRN Administration Sleep/Insomnia Discontinued Medications Generic Name Dose Route Start Last Admin Trade Name Neri PRN Reason Stop Dose Admin Misoprostol 25 mcg 05/04/18 19:45 05/05/18 05:16 Cytotec PO 10/31/18 19:44 25 mcg Q4H PRN Administration CERVICAL RIPENING Misoprostol 50 mcg 05/05/18 09:18 05/05/18 10:09 Cytotec PO 05/05/18 09:19 50 mcg ONCE ONE Administration - Hospital Course Intrapartum: 05/05/18 18:51 Feeling much more uncomfortable since SROM. Tried tub and nitrous - requesting epidural now. Indications for Delivery: Preeclampsia Mild Vaginal Delivery - Delivery Provider Delivery Physician/CNM: Gloria Molina - Labor and Delivery Onset of Contractions Date: 05/05/18 Onset of Contractions Time: 16:36 Onset of Contractions Type: Induced Rupture of Membranes Date: 05/05/18 Rupture of Membranes Time: 16:36 Rupture of Membranes Type: Spontaneous Amniotic Fluid Color: Clear Dilation Complete Date: 05/06/18 Dilation Complete Time: 07:28 Placenta Delivery Date: 05/06/18 Placenta Delivery Time: 09:20 Total Hours of Labor: 16 Non-surgical Procedures: IUPC, Other (Specify) (Cook catheter placed, 60 cc internal balloon, 20 cc external balloon) Laceration: 2nd Degree, Other (Specify) (1 degree left vaginal wall - repaired with 30-0 vicryl) Repair: 3-0 Vaginal Sponge Count Correct: Yes Vaginal Needle Count Correct: Yes Vaginal Sweep Performed: No EBL: 300 Delivery Events: Nuchal Cord (loose, reduced easily) - Medications Labor Augmentation/Induction Methods Used: Pitocin, Misoprostol Labor Augmentation/Induction Indication: Other (Specify) (preeclampsia without severe features) Data [place]: 05/20/18 Gestational Age: 38 week(s) and 0 day(s) [place] Delivery Date: 05/06/18 Delivery Time: 09:00 Sex of Infant: Male Score (1 Min): 8 Score (5 Min): 9 ICD10 Worksheet Patient Problems: Problems Problem Status Onset Pre-eclampsia during in third trimester, antepartum Acute Vaginal delivery Acute Elevated blood pressure affecting in third trimester, antepartum Acute Mandibular hypoplasia Acute Obstructive sleep apnea Acute - ICD10 Problem Qualifiers (1) Vaginal delivery
[2018-05-06 12:14] LABS: PLATELET COUNT 222 10^3/uL (150-400)
[2018-05-06] MEDS: IBUPROFEN 600 MG TAB PO PRN ×2 (17:15→23:01)
[2018-05-06] MEDS: ACETAMINOPHEN 325 MG TAB PO PRN ×2 (17:17→23:01)
[2018-05-06] MEDS: DOCUSATE SODIUM 100 MG CAP PO PRN (21:55)
[2018-05-06] MEDS: levETIRAcetam 500 MG TAB PO SCH (21:56)
[2018-05-07] MEDS: ACETAMINOPHEN 325 MG TAB PO PRN ×4 (05:25→23:21)
[2018-05-07] MEDS: IBUPROFEN 600 MG TAB PO PRN ×4 (05:26→23:22)
[2018-05-07] MEDS: DOCUSATE SODIUM 100 MG CAP PO PRN ×2 (08:14→22:14)
--- NOTE | 2018-05-07 11:40 | POSTANESTH ---
Post Anesthetic Evaluation Cardiovascular Status: Normal, Stable Respiratory Status: Normal, Stable Level of Consciousness/Mental Status: Can Participate in Eval Pain Control: Adequate, Prn Tx Ordered Nausea/Vomiting Control: Adequate, Prn Tx Ordered Complications Possibly Related to Anesthesia: None Noted (good labor analgesia from TRISTEN. No complaints ellicited with specific questioning.)
--- NOTE | 2018-05-07 14:11 | OBPP ---
Progress Note Assessment/Plan: Assessment: 38 y/o P1 - s/p ppd #1 preeclampsia without severe features VSS - BPs have been WNL overnight Plan: Routine pp care Plan d/c tomorrow 05/05/18 09:06 05/05/18 15:07 05/05/18 18:48 05/06/18 00:25 05/06/18 07:42 05/07/18 14:09 05/07/18 14:12 Subjective/ Course: 05/07/18 14:08 Feeling good. Was able to get some sleep last night. going well , baby a little sleepy. Tolerating activity, regular diet - bleeding wnl, voiding, pain well controlled with oral pain meds. Denies h/a, visual changes or epigastric pain. 05/07/18 14:11 Objective: 05/07/18 05:45 05/06/18 12:05 Patient ABO/Rh B POSITIVE 05/04/18 20:00 Uric Acid 6.0 mg/dL (2.5-6.8) 05/06/18 12:05 Total Bilirubin 0.7 mg/dL (0.1-1.4) 05/06/18 12:05 Conjugated Bilirubin 0.2 mg/dL (0.0-0.5) 05/06/18 12:05 Unconjugated Bilirubin 0.5 mg/dL (0.0-1.1) 05/06/18 12:05 AST 37 IU/L (14-46) 05/06/18 12:05 ALT 23 IU/L (9-52) 05/06/18 12:05 Lactate Dehydrogenase 824 IU/L (313-618) H 05/06/18 12:05 Temp Pulse Resp BP Pulse Ox 36.3 C 79 16 120/84 H 96 05/06/18 21:00 05/06/18 21:00 05/06/18 21:00 05/06/18 21:00 05/06/18 21:00 Uterine Position/Fundal Height: At Umbilicus Uterine Tone: Firm Physical Exam - Physical Exam EENT: normal ENT inspection Neck: non-tender Respiratory: normal breath sounds Cardiac/Chest: regular rate, rhythm Abdomen: non-tender Back: Normal inspection Skin: normal color Neuro/Psych: no motor/sensory deficits, alert, normal mood/affect, oriented x 3
[2018-05-07] MEDS: levETIRAcetam 500 MG TAB PO SCH (22:14)
[2018-05-08] MEDS: IBUPROFEN 600 MG TAB PO PRN (05:47)
[2018-05-08] MEDS: ACETAMINOPHEN 325 MG TAB PO PRN (05:47)
[2018-05-08 09:15] VITALS: BP 136/82
--- NOTE | 2018-05-08 09:37 | OBGCSDC ---
General Delivery Information - General Info : 1 Para: 1 Abortions: 0 Type: Vaginal L&D Analgesia/Anesthesia Type: Epidural Admission Date: 05/04/18 Labs: Patient ABO/Rh B POSITIVE 05/04/18 20:00 Hct 38.9 % (38.0-47.0) 05/07/18 05:45 - Hospital Course Intrapartum: 05/05/18 18:51 Feeling much more uncomfortable since SROM. Tried tub and nitrous - requesting epidural now. : 05/07/18 14:08 Feeling good. Was able to get some sleep last night. going well , baby a little sleepy. Tolerating activity, regular diet - bleeding wnl, voiding, pain well controlled with oral pain meds. Denies h/a, visual changes or epigastric pain. 05/07/18 14:11 05/08/18 09:36 No c/o. Voiding without difficulty. Baby is sleepy, but breast feeding well when awake. Vaginal - Delivery Provider Delivery Physician/CNM: Gloria Molina - Diagnosis Labor: Induced Rupture of Membranes Type: Spontaneous Amniotic Fluid Color: Clear Laceration: 2nd Degree, Other (Specify) (1 degree left vaginal wall - repaired with 30-0 vicryl) Repair: 3-0 Delivery Events: Nuchal Cord (loose, reduced easily) - Procedures Non-surgical Procedures: IUPC, Other (Specify) (Cook catheter placed, 60 cc internal balloon, 20 cc external balloon) - Delivery Non-surgical Procedures: IUPC, Other (Specify) (Cook catheter placed, 60 cc internal balloon, 20 cc external balloon) EBL: 300 [place] Data [place]: 05/20/18 Gestational Age: 38 week(s) and 2 day(s) [place] Delivery Date: 05/06/18 Delivery Time: 09:00 Sex of Infant: Male [place] Weight (gm): 2886 g Score (1 Min): 8 Score (5 Min): 9 Discharge Information - Discharge Information Condition: Good Instruction/Follow Up: One Week, Two Weeks, Four Weeks, Six Weeks (f/u in 1 week for BP check)
[2018-05-08] MEDS: DOCUSATE SODIUM 100 MG CAP PO PRN (09:51)
== END 2018-05-08 12:10 | disposition home or self-care (01) | DRG 806 ==
LOC: FLD 16:29 → FOB 05-06 13:09
PROVIDERS: ADMIT Advanced Practice Midwife; ATTEND Advanced Practice Midwife
DX: O14.94 Unspecified pre-eclampsia, complicating childbirth (principal); O70.1 Second degree perineal laceration during delivery; O69.81X0 Labor and delivery complicated by cord around neck, without compression, not applicable or unspecified; O99.350 Diseases of the nervous system complicating pregnancy, unspecified trimester; G40.B09 Juvenile myoclonic epilepsy, not intractable, without status epilepticus; Z3A.37 37 weeks gestation of pregnancy; Z37.0 Single live birth
CPT/HCPCS: J2370; J2405; J2590